=== PATIENT | male | born 1985 | race Caucasian/White ===

== ENCOUNTER → 2018-05-16 | Outpatient (CLI) | payer OTHER ==
--- NOTE | 2018-05-16 12:32 | RADIOLOGY IMAGING REPORT ---
FACILITY: [facility] - [place] PATIENT NAME: Dom Christine : 1985 MR: [id number] V: [id number] EXAM DATE: ORDERING PHYSICIAN: [facility] TECHNOLOGIST: Location: [facility] [place] Patient: Dom Christine : 1985 Visit/Account:[id number] Date of Sevice: 05/16/2018 KNEE 3 VIEW LEFT Indication: Left knee pain for years Comparison: None Findings: Distal femur, proximal tibia and fibula, the patella demonstrate normal mineralization and alignment. Soft tissues are unremarkable. IMPRESSION: Normal left knee radiograph. Report Dictated By: Janak Schwartz at 05/16/2018 12:27 PM Report E-Signed By: Janak Schwartz at 05/16/2018 12:28 PM BRYNN:[email or web address]
--- NOTE | 2018-05-16 12:35 | RADIOLOGY IMAGING REPORT ---
FACILITY: [facility] [place] PATIENT NAME: Dom Christine : 1985 MR: [id number] V: [id number] EXAM DATE: ORDERING PHYSICIAN: [facility] TECHNOLOGIST: Location: [facility] Patient: Dom Christine : 1985 Visit/Account:[id number] Date of Sevice: 05/16/2018 CERVICAL SPINE 2 OR 3 VIEW Indication: Neck pain. Comparison: None. Findings: The vertebral bodies and posterior elements are intact. Disc spaces are normal. Facets ar e unremarkable. IMPRESSION: Normal cervical spine radiograph. Report Dictated By: Janak Schwartz at 05/16/2018 12:29 PM Report E-Signed By: Janak Schwartz at 05/16/2018 12:29 PM [id number]:[email or web address]
== END ==
LOC: RAD 11:27
PROVIDERS: ATTEND Nurse Practitioner Family
DX: M25.562 Pain in left knee (principal)
CPT/HCPCS: 72040